=== PATIENT | female | born 1955 | race Asian ===

== ENCOUNTER 2022-11-26 01:03 | Emergency (ER) | payer MEDICARE ==
[~2022-11-26] VITALS: Ht 162.6 cm; Wt 62.0 kg
[2022-11-26 03:01] LABS: BASOPHILS % (AUTO) 0.9 % (0.0-2.0); EOSINOPHILS % (AUTO) 1.2 % (1.0-6.0); HEMATOCRIT 44.2 % (36-46); HEMOGLOBIN 15.1 g/dL (12.0-16.0); LYMPHOCYTES # (AUTO) 1.6 K/uL (1.0-4.8); LYMPHOCYTES % (AUTO) 28.1 % (22.0-44.0); MEAN CORPUSCULAR HEMOGLOBIN 31.8 pg (26.0-34.0); MEAN CORPUSCULAR HGB CONC 34.2 G/dL (31.0-37.0); MEAN CORPUSCULAR VOLUME 93 fL (80-100); MONOCYTES # (AUTO) 0.4 K/uL (0.1-1.0); MONOCYTES % (AUTO) 7.6 % (2.0-9.0); NEUTROPHILS # (AUTO) 3.6 K/uL (1.8-7.7); NEUTROPHILS % (AUTO) 62.2 % (40.0-70.0); PLATELET COUNT (AUTO) 214 K/uL (150-450); RED BLOOD CELL COUNT(AUTO) 4.76 MIL/uL (4.00-5.20); RED CELL DISTRIBUTION WIDTH 13.4 % (11.5-14.5); WHITE BLOOD COUNT (AUTO) 5.8 K/uL (4.5-11.0)
[2022-11-26 03:07] LABS: CREATININE 0.98 mg/dL (0.60-1.30); POTASSIUM 3.7 mmol/L (3.5-5.1)
[2022-11-26 03:12] LABS: TROPONIN I-HIGH SENSITIVITY 7 ng/L (<51)
[2022-11-26 03:33] LABS: BILIRUBIN,TOTAL 0.6 mg/dL (0.1-1.0); TOTAL PROTEIN, SERUM 7.6 g/dL (6.4-8.2)
[2022-11-26 05:00] VITALS: BP 133/82; PULSE 76; RESP 18; TEMP 98.6
== END 2022-11-26 05:03 | disposition home or self-care (01) ==
LOC: EMS 01:06
DX: R42 Dizziness and giddiness (principal); E78.00 Pure hypercholesterolemia, unspecified; I10 Essential (primary) hypertension
CPT/HCPCS: 70450; 71045; 80053; 82550; 83880; 84484; 85025; 93005; 99285; 36415-L1; 36415-TC